=== PATIENT | female | born 1960 | race Caucasian/White ===

== ENCOUNTER 2016-05-24 22:51 | Emergency (ER) | payer OTHER ==
[2016-05-24] MEDS ORDERED: ONDANSETRON 4 MG/2 ML VIAL ONE (23:01)
[2016-05-24] MEDS ORDERED: HYDROmorphONE/DILAUDID 1 MG/ML SYR ONE (23:02)
[2016-05-24 23:03] VITALS: TEMP 97.9
[2016-05-24] MEDS ORDERED: NS 1,000 ML IV ONE (23:08)
[2016-05-24] MEDS ORDERED: ONDANSETRON 4 MG/2 ML VIAL IVP ONE (23:08)
[2016-05-24] MEDS ORDERED: HYDROmorphONE/DILAUDID 1 MG/ML SYR IVP ONE ×2 (23:08→23:22)
--- NOTE | 2016-05-24 23:12 | EDPHY ---
H & P Stated Complaint: RLQ pain Time Seen by Provider: 05/24/16 23:03 HPI/ROS: CHIEF COMPLAINT: Right lower quadrant pain HISTORY OF PRESENT ILLNESS: Patient is a 56-year-old female with a history of fibromyalgia who comes to the emergency department complaining of right lower quadrant pain that began suddenly an hour half ago. She has not had a fever. She has had normal bowel movements today. No vomiting. No urinary symptoms. No vaginal bleeding or discharge. she states that this feels different than her typical fibromyalgia pain. It does seem different than kidney stones she has had in the past. She does have a history of and hysterectomy. REVIEW OF SYSTEMS: Constitutional: denies: chills, fever, recent illness, recent injury EENTM: denies: blurred vision, double vision, nose congestion Respiratory: denies: cough, shortness of breath Cardiac: denies: chest pain, irregular heart rate, lightheadedness, palpitations Gastrointestinal/Abdominal: See HPI Genitourinary: denies: dysuria, frequency, hematuria, pain Musculoskeletal: denies: joint pain, muscle pain Skin: denies: lesions, rash, jaundice, bruising Neurological: denies: headache, numbness, paresthesia, tingling, dizziness, weakness Hematologic/Lymphatic: denies: blood clots, easy bleeding, easy bruising Immunologic/allergic: denies: HIV/AIDS, transplant EXAM: GENERAL: Very dramatic, shaking and holding her right lower quadrant HEAD: Atraumatic, normocephalic. EYES: Pupils equal round and reactive to light, extraocular movements intact, sclera anicteric, conjunctiva are normal. ENT: TMs normal, nares patent, oropharynx clear without exudates. Moist mucous membranes. NECK: Normal range of motion, supple without lymphadenopathy or JVD. LUNGS: Breath sounds clear to auscultation bilaterally and equal. No wheezes rales or rhonchi. HEART: Regular rate and rhythm without murmurs, rubs or gallops. ABDOMEN: Severe pain, not worsened with palpation. Radiates to her flank. No palpable hernia. BACK: No CVA tenderness, no spinal tenderness, step-offs or deformities EXTREMITIES: Normal range of motion, no pitting or edema. No clubbing or cyanosis. NEUROLOGICAL: Cranial nerves II through XII grossly intact. Normal speech, normal gait. 5/5 strength, normal movement in all extremities, normal sensation PSYCH: Normal mood, normal affect. SKIN: Warm, dry, normal turgor, no visible rashes or lesions. Source: Patient Exam Limitations: No limitations - Personal History Current Tetanus Diphtheria and Acellular Pertussis (TDAP): Yes - Medical/Surgical History Hx Asthma: No Hx Chronic Respiratory Disease: No Hx Diabetes: No Hx Cardiac Disease: No Hx Renal Disease: No Hx Cirrhosis: No Hx Alcoholism: No Hx HIV/AIDS: No Hx Splenectomy or Spleen Trauma: No Other PMH: fibromyalgia, c-sections, hysterectomy - Family History Significant Family History: No pertinent family hx - Social History Smoking Status: Never smoked Alcohol Use: Sober Drug Use: None Constitutional: Initial Vital Signs Temperature (C) 36.6 C 05/24/16 22:58 Heart Rate 94 05/24/16 22:58 Respiratory Rate 16 05/24/16 22:58 Blood Pressure 177/101 H 05/24/16 22:58 O2 Sat (%) 96 05/24/16 22:58 O2 Delivery Mode Room Air O2 (L/minute) 2 Allergies/Adverse Reactions: Sulfa (Sulfonamide Antibiotics) Allergy (Verified 05/24/16 22:57) Home Medications: Medication Instructions Recorded Gabapentin 05/24/16 traMADol 05/24/16 Hydrocodone/APAP 5/325 [Mukilteo 1 - 2 tab PO Q4H PRN #10 tab 05/25/16 5/325] Ketorolac Tromethamine [Toradol] 10 mg PO Q6H #16 tab 05/25/16 Ondansetron Odt [Zofran Odt 4 mg 4 mg PO Q4 PRN #20 tab 05/25/16 (RX)] Tamsulosin HCl [Flomax] 0.4 mg PO DAILY #10 cap 05/25/16 oxyCODONE/APAP 5/325 [Percocet 1 - 2 tab PO Q4H PRN #20 tab 05/25/16 5/325] Medical Decision Making - Diagnostics Imaging: Results: CT scan of the abdomen and pelvis was obtained. The results of the study are positive for right-sided ureteral stone. The study was read by Dr. Alexandre Palma. I viewed the images myself on the PACS system. ED Course/Re-evaluation: 1:[address] a[address]. we discussed the CT results. The patient and family understand. She is requesting more pain medication and nausea medication. Patient is feeling much better. We discussed follow-up. Differential Diagnosis: Partial list of the Differential diagnosis considered include but were not limited to; kidney stone, appendicitis, and although unlikely based on the history and physical exam, I also considered obstruction, ischemia. I discussed these differential diagnoses and the plan with the patient as well as the usual and expected course. The patient understands that the diagnosis is provisional and that in medicine we are not always correct and that further workup is often warranted. Usual and customary warnings were given. All of the patient's questions were answered. The patient was instructed to return to the emergency department should the symptoms at all worsen or return, otherwise to followup with the physician as we discussed. - Data Points Laboratory Results: Laboratory Results 05/24/16 23:00 05/24/16 23:00 Medications Given: Discontinued Medications Hydromorphone HCl (Dilaudid) 1 mg IVP EDNOW ONE Stop: 05/24/16 23:09 Last Admin: 05/24/16 23:10 Dose: 1 mg Hydromorphone HCl (Dilaudid) 1 mg IVP EDNOW ONE Stop: 05/24/16 23:23 Last Admin: 05/24/16 23:22 Dose: 1 mg Sodium Chloride (Ns) 1,000 mls @ 0 mls/hr IV ONCE ONE PRN Reason: Wide Open Stop: 05/24/16 23:09 Last Admin: 05/24/16 23:10 Dose: 1,000 mls Sodium Chloride (Ns) 1,000 mls @ 0 mls/hr IV ONCE ONE PRN Reason: Wide Open Stop: 05/25/16 01:04 Last Admin: 05/25/16 01:00 Dose: 1,000 mls Ketorolac Tromethamine (Toradol) 30 mg IVP EDNOW ONE Stop: 05/25/16 01:45 Last Admin: 05/25/16 01:50 Dose: 30 mg Ondansetron HCl (Zofran) 4 mg IVP EDNOW ONE Stop: 05/24/16 23:09 Last Admin: 05/24/16 23:10 Dose: 4 mg Ondansetron HCl (Zofran) 4 mg IVP EDNOW ONE Stop: 05/25/16 01:45 Last Admin: 05/25/16 01:51 Dose: 4 mg Ondansetron HCl (Zofran Odt 4 Mg Prepack#2) 1 btl TAKEHOME EDNOW ONE Stop: 05/25/16 01:52 Last Admin: 05/25/16 01:51 Dose: 1 btl Tamsulosin HCl (Flomax) 0.4 mg PO EDNOW ONE Stop: 05/25/16 01:45 Last Admin: 05/25/16 01:51 Dose: 0.4 mg Departure - Departure Disposition: Home, Routine, Self-Care Clinical Impression: Renal colic on right side Condition: Fair Instructions: Ondansetron (By mouth), Kidney Stones (ED) Referrals: Prema Caraballo MD [Primary Care Provider] - As per Instructions Deejay Lizarraga MD [Medical Doctor] - As per Instructions Prescriptions: Tamsulosin HCl [Flomax] 0.4 mg PO DAILY #10 cap Hydrocodone/APAP 5/325 [Mukilteo 5/325] 1 - 2 tab PO Q4H PRN #10 tab PRN Reason: Pain, Moderate oxyCODONE/APAP 5/325 [Percocet 5/325] 1 - 2 tab PO Q4H PRN #20 tab PRN Reason: Pain, Severe Ketorolac Tromethamine [Toradol] 10 mg PO Q6H #16 tab Ondansetron Odt [Zofran Odt 4 mg (RX)] 4 mg PO Q4 PRN #20 tab PRN Reason: Nausea & Vomiting
[2016-05-24 23:33] LABS: % IMMATURE GRANULYOCYTES 0.2 % (0.0-1.1); ABSOLUTE IMMATURE GRANULOCYTES 0.02 10^3/uL (0.00-0.10); ADD DIFF? NO; ATYPICAL LYMPHOCYTE FLAG 10 (0-99); FRAGMENT RBC FLAG 0 (0-99); HEMATOCRIT 41.9 % (38.0-47.0); HEMOGLOBIN 14.6 g/dL (12.6-16.3); LEFT SHIFT FLG 0 (0-99); MEAN CELL HEMOGLOBIN 30.5 pg (27.9-34.1); MEAN CELL HEMOGLOBIN CONCENTR. 34.8 g/dL (32.4-36.7); MEAN CELL VOLUME 87.5 fL (81.5-99.8); MEAN PLATELET VOLUME 10.8 fL (8.7-11.7); PLATELET COUNT 272 10^3/uL (150-400); RED BLOOD CELL COUNT 4.79 10^6/uL (4.18-5.33)
[2016-05-24 23:34] LABS: ADD MORPH? NO; ADD SCAN? NO; LIPEMIA HEMOLYSIS FLAG 90 (0-99); PLATELET CLUMPS FLAG 0 (0-99)
[2016-05-24 23:49] LABS: ALANINE AMINOTRANSFERASE 40 IU/L (9-52); ALBUMIN 4.6 g/dL (3.5-5.0); ALKALINE PHOSPHATASE 86 IU/L (38-126); ANION GAP 13 mEq/L (8-16); ASPARTATE AMINOTRANSFERASE 28 IU/L (14-46); BILIRUBIN,TOTAL 0.5 mg/dL (0.1-1.4); BILIRUBIN-CONJUGATED 0.5 mg/dL (0.0-0.5); CALCIUM 10.1 mg/dL (8.5-10.4); CARBON DIOXIDE 26 mEq/l (22-31); CHLORIDE 104 mEq/L (97-110); GLOMERULAR FILTRATION RATE 57; GLUCOSE 117 mg/dL (70-100); SODIUM 143 mEq/L (134-144); TOTAL PROTEIN 7.7 g/dL (6.3-8.2)
[2016-05-25] MEDS ORDERED: IOPAMIDOL (ISOVUE-300) 100 ML BTL IV ONE (00:27)
[2016-05-25] MEDS ORDERED: NS 1,000 ML IV ONE (01:03)
[2016-05-25 01:09] LABS: COLOR PALE YELLOW; LEUKOCYTE ESTERASE,URINE NEGATIVE (NEGATIVE); NITRITE,URINE NEGATIVE (NEGATIVE)
[2016-05-25] MEDS ORDERED: TAMSULOSIN HCL 0.4 MG CAP PO ONE (01:44)
[2016-05-25] MEDS ORDERED: ONDANSETRON 4 MG/2 ML VIAL IVP ONE (01:44)
[2016-05-25] MEDS ORDERED: KETOROLAC 30 MG/1 ML SDV IVP ONE (01:44)
[2016-05-25] MEDS ORDERED: ONDANSETRON 4MG PREPACK#2 BTL TAKEHOME ONE ×2 (01:49→01:51)
[2016-05-25 06:35] VITALS: BP 148/95; PULSE 84; RESP 18; O2SAT 95
--- NOTE | 2016-05-25 10:03 | CT ---
CT Scan of the Abdomen and Pelvis (With Contrast) 00 37 hours History: Sudden onset right lower quadrant pain. History of kidney stones. Technique: Axial computed tomographic images of the abdomen and pelvis were obtained with the uneven tful intravenous administration of 85 mL Isovue-300 contrast. . Images were reviewed in multiple chandana bry. Dose reduction techniques were utilized. CT Abdomen and Pelvis Findings: Lung bases: Normal. Liver: Within the right lobe of the liver posterior segment is a tiny less than 5 mm probable cyst. No significant liver lesion is seen. The liver is normal in size. Spleen: Normal. Gallbladder and Bile Ducts: Normal. Pancreas: Normal. Adrenals: Normal. Kidneys: There is moderate right-sided hydronephrosis with moderate dilatation of the right ureter d own to the pelvis where there is a distal right ureteral calculus that measures 4.2 x 3.1 x 3.5 mm i n AP, transverse, and longitudinal dimensions. This is positioned about 5 cm above the UVJ. Within t he lower pole of the right kidney there is a nonobstructive calculus measuring 6.5 x 4 mm. No additi onal urinary tract calculi are seen on either side. There is a small subcentimeter cyst lower pole r ight kidney. There is no significant renal mass identified. Abdominal Aorta: No aneurysm. There is mild arteriosclerotic calcified plaque of the distal aorta. Pelvic structures: The patient has apparently had a previous hysterectomy. No adnexal masses are see n. Bladder: Normal. Appendix: Normal. Bowel Loops: There is a mild amount of residual stool present within the colon compatible with mild constipation. There are no significantly dilated loops of bowel.. No bowel obstruction, ascites, or significant retroperitoneal lymphadenopathy. Skeletal system: Vertebral body heights are well-maintained. There are no significant lytic or scle rotic osseous lesions. Moderate facet hypertrophy is present at L4-L5 with moderate degenerative dis k disease at L5-S1. Impression: 1. Moderate right-sided hydronephrosis secondary to a distal right ureteral calculus about 5 cm abov e the UVJ as detailed above. 2. Nonobstructive calculus lower pole right kidney. 3. Mild constipation. 4. Moderate facet hypertrophy L4-L5 with moderate degenerative disk disease L5-S1. The study was performed as an emergency on-call case and discussed by telephone with Dr. Ghosh at 0112 hrs. The final interpretation is concordant with the original communication.
== END 2016-05-25 02:10 | disposition home or self-care (01) ==
DX: N23 Unspecified renal colic (principal); Z90.710 Acquired absence of both cervix and uterus
CPT/HCPCS: 96374; J1170; J1885; J2405; Q9967

== ENCOUNTER → 2016-05-27 | Outpatient (CLI) | payer OTHER | LOC: CIMAGING 13:46 | PROVIDERS: ATTEND Specialist | DX: N20.0 Calculus of kidney (principal) | CPT/HCPCS: 74000-PO ==

== ENCOUNTER 2016-06-24 05:46 | Day surgery (SDC) | payer OTHER ==
[2016-06-24] MEDS ORDERED: LIDOCAINE 1% 2 ML INJ ONE (05:58)
[2016-06-24] MEDS ORDERED: LIDOCAINE 2% JELLY 20 ML (UROJECT) ONE (06:30)
[2016-06-24] MEDS ORDERED: IOPAMIDOL (ISOVUE-M 300) 15 ML VIAL IV ONE ×2 (06:31→06:32)
[2016-06-24] MEDS ORDERED: MIDAZOLAM 2 MG/2 ML VIAL ONE (07:10)
[2016-06-24] MEDS ORDERED: CEFAZOLIN 2 GM/DEXTROSE/100 ML BAG IV ONE (07:12)
[2016-06-24] MEDS ORDERED: DEXAMETHASONE 4 MG/ML VIAL ONE (07:19)
[2016-06-24] MEDS ORDERED: LIDOCAINE 2% 5 ML SDV ONE (07:19)
[2016-06-24] MEDS ORDERED: PROPOFOL 200 MG/20 ML VIAL ONE (07:19)
[2016-06-24] MEDS ORDERED: fentaNYL 100 MCG/2 ML INJ ONE ×2 (07:19→08:26)
[2016-06-24] MEDS ORDERED: SCOPOLAMINE HYDROBROMIDE 1.5 MG PATCH TD ONE (07:30)
[2016-06-24] MEDS ORDERED: ceFAZolin 2 GM/DEXTROSE 100 ML IV ONE (08:00)
--- NOTE | 2016-06-24 08:07 | SUROPNOTE ---
[facility] Operative Report - Surgery right ureteroscopy GLMA Zia right stent no stone seen dictation [id number]
--- NOTE | 2016-06-24 08:38 | GOP ---
[f rep st] OPERATIVE REPORT DATE OF OPERATION: 06/24/2016 SURGEON: Marcus Lizarraga MD ANESTHESIA: General laryngeal mask. PREOPERATIVE DIAGNOSIS: Right renal colic, history of distal right ureteral stone, possible persist ent stone. POSTOPERATIVE DIAGNOSIS: Probable passed stone, a focal patch of bladder erythema. PROCEDURE PERFORMED: Cystoscopy, ureteroscopy, and stent insertion. FINDINGS: ESTIMATED BLOOD LOSS: None. DESCRIPTION OF PROCEDURE: Patient was taken to the operating room, general anesthesia was induced. Patient was placed in the dorsal lithotomy position, prepped and draped in sterile fashion. The 22 -Latvian cystoscope with 30-degree lens was inserted through the patient's urethra into the patient's bladder. No urothelial defects, masses, or stones were noted. The patient did have a very small m inor area of erythema near the right ureteral orifice suggesting a possible prior stone lodged at th is location. A Sensor wire was inserted into the right ureteral orifice and guided up to the right renal pelvis by fluoroscopy. The inner trocar of an access sheath was used to gently dilate the dis diallo ureter up to the mid ureter with zero difficulty. The access sheath inner trocar was removed. The semi-rigid ureteroscope was guided alongside the wire carefully up to the UPJ. No stone was dianne ntified. It was carefully withdrawn and no stone was identified. It was actually reinserted into t he first half of the distal third, and again, no stone was identified. Careful examination was perf ormed looking for a duplicated ureter. No other ureteral orifice was identified. The EO did not se em to be in need of biopsy. The wire was backloaded onto the cystoscope and a 6-Latvian stent was pl aced in the right renal pelvis by fluoroscopy and seen to curl in the bladder by direct vision. The bladder was drained. She was returned to the supine position, and was being prepared for transfer to the recovery room at time of this dictation. SURGEON: Marcus Lizarraga MD COMPLICATIONS: None. DRAINS: Right-sided 6-Latvian variable length stent. /[id number]/MODL
[2016-06-24] MEDS ORDERED: OXYCODONE/APAP 5/325 TAB ONE ×2 (09:04→09:53)
[2016-06-24] MEDS ORDERED: OPIUM/BELLADONNA ALKALO SUPP PR ONE ×2 (09:42→10:30)
== END 2016-06-24 10:15 | disposition home or self-care (01) ==
LOC: FSGY 05:46
PROVIDERS: ATTEND Specialist
PROC: 0T768DZ Dilation of Right Ureter with Intraluminal Device, Via Natural or Artificial Opening Endoscopic (ICD-10-PCS; principal; 2016-06-24 07:15)
DX: N23 Unspecified renal colic (principal); R35.0 Frequency of micturition; Z87.442 Personal history of urinary calculi; M79.7 Fibromyalgia; I10 Essential (primary) hypertension; Z87.891 Personal history of nicotine dependence
CPT/HCPCS: C1758; C1769; C1894; C2625; J0690; J1100; J2250; J2704; J3010; Q9967

== ENCOUNTER → 2016-07-22 | Outpatient (CLI) | payer OTHER | LOC: CIMAGING 16:42 | PROVIDERS: ATTEND Specialist | DX: R35.0 Frequency of micturition (principal) | CPT/HCPCS: 76770-PO ==

== ENCOUNTER → 2016-09-16 | Outpatient (CLI) | payer OTHER | LOC: CIMAGING 19:27 | PROVIDERS: ATTEND Specialist | DX: N20.0 Calculus of kidney (principal); R93.49 Abnormal radiologic findings on diagnostic imaging of other urinary organs | CPT/HCPCS: 74000-PO ==

== ENCOUNTER 2016-10-09 10:07 | Observation (INO) | payer OTHER ==
[2016-10-09] MEDS ORDERED: KETAMINE 500 MG/10 ML VIAL NASAL ONE (10:22)
[2016-10-09] MEDS ORDERED: HYDROmorphONE/DILAUDID 1 MG/ML SYR ONE ×2 (10:43→11:26)
[2016-10-09] MEDS ORDERED: ONDANSETRON 4 MG/2 ML VIAL ONE ×3 (10:44→14:51)
[2016-10-09] MEDS ORDERED: KETOROLAC 15 MG/1 ML SDV ONE (10:57)
[2016-10-09] MEDS ORDERED: KETOROLAC 15 MG/1 ML SDV IVP ONE (10:57)
[2016-10-09] MEDS ORDERED: ONDANSETRON 4 MG/2 ML VIAL IVP ONE ×2 (11:30→12:35)
[2016-10-09] MEDS: HYDROmorphONE/DILAUDID 1 MG/ML SYR IVP PRN ×2 (11:30→13:59)
--- NOTE | 2016-10-09 12:58 | EDPHY ---
H & P Stated Complaint: r kidney stone/lithotrypsy thurs Time Seen by Provider: 10/09/16 10:21 HPI/ROS: CHIEF COMPLAINT: Kidney stones HISTORY OF PRESENT ILLNESS: The patient is a 56 y/o female with known kidney stones complaining of severe right flank pain and nausea. On 05/25/16 she was evaluated here with similar pain and had a right side uretal stone and kidney stone confirmed on CT. By June, she had surgery because the uretal stone wasn' t passing. During surgery they found the stone was gone and they placed a stent , which she was unable to tolerate for more than a day. She then had a lithotripsy in [facility] 3 days ago. She felt great yesterday and passed a piece of stone without pain. This morning around 05:00, about 7 hours ago, she began to feel uncomfortable and she attributed it expected soreness from the procedure. Then abruptly she was hit with severe flank pain that "dropped me to my knees." She only took her normal Tramadol dose at home and did not use the narcotics prescribed by her urologist. After pain medication here, she continues to have dull pain and pressure that waxes and wanes. She denies fever. REVIEW OF SYSTEMS: A 10 point review of systems was performed and is negative with the exception of the elements mentioned in the history of present illness. * - Personal History Current Tetanus/Diphtheria Vaccine: Yes - Medical/Surgical History PMH: PMH: 1. Fibromyalgia - Tramadol 2. Kidney stones, first episode 15 years ago. 3. Hypertension - started Losartan 2 weeks ago 4. Uretal surgery 5. Lithotripsy 6. C-sections 7. Hysterectomy Hx Asthma: No Hx Chronic Respiratory Disease: No Hx Diabetes: No Hx Cardiac Disease: No Hx Renal Disease: Yes Hx Cirrhosis: No Hx Alcoholism: No Hx HIV/AIDS: No Hx Splenectomy or Spleen Trauma: No Other PMH: fibromyalgia, c-sections, hysterectomy - Social History Smoking Status: Former smoker Additional Social History: Nonsmoker. Very rare alcohol use. Urologist: Dr. Deejay Lizarraga PCP: Dr. Muro - Physical Exam Exam: General Appearance: Alert, no acute distress. * Eyes: Pupils equal and round, no conjunctival injection, no discharge. ENT, Mouth: Mucous membranes are moist, no oropharyngeal erythema or edema. Neck: No lymphadenopathy, supple. Respiratory: Lungs are clear to auscultation; no wheezes, rales, or rhonchi. Cardiovascular: Regular rate and rhythm; no murmur, rub, or gallop. Gastrointestinal: Abdomen is soft and non tender, no masses or organomegaly. Skin: Warm and dry, no rashes, normal color. Back: Nontender to palpation over the midline thoracolumbar spine. Moderate right CVA tenderness. Extremities: No lower extremity edema, no calf tenderness or swelling. Neurological: Alert and oriented. Moving all four extremities easily and equally. Psychiatric: Normal affect. Constitutional: Initial Vital Signs Temperature (C) 36.7 C 10/09/16 10:12 Heart Rate 112 H 10/09/16 10:12 Respiratory Rate 28 H 10/09/16 10:12 Blood Pressure 158/106 H 10/09/16 10:12 O2 Sat (%) 99 10/09/16 10:12 O2 Delivery Mode Nasal Cannula O2 (L/minute) 1 Allergies/Adverse Reactions: Sulfa (Sulfonamide Antibiotics) Allergy (Verified 10/09/16 10:08) Hives Home Medications: Medication Instructions Recorded traMADol 05/24/16 Flomax 10/09/16 Losartan Potassium 10/09/16 Oxycodone HCl 10/09/16 Medical Decision Making - Diagnostics Imaging Results: Imaging Impressions Abdomen/Pelvis CT 10/09/16 13:06 Impression: 1. Right mid pelvic ureteral stone (4.7 x 4.5 x 4.3 mm). 2. Incompletely evaluated right lung nodule or infiltrate. Results discussed with Dr. Elizabeth Novak. Attention: This CT examination is specifically designed to evaluate patients who are clinically suspected of having acute obstructive uropathy. This examination does not use radiographic contrast, and as such, provides only a limited evaluation of the abdomen, pelvis and retroperitoneum. If there is further clinical suspicion for pathological conditions other than obstructive uropathy, a complete CT evaluation of the abdomen and pelvis utilizing intravenous, oral, and rectal contrast should be considered. General information for patients regarding this examination can be found at [email or web address]. If you have questions or comments about this report, please contact me at (hospital) or [phone] (cell). ED Course/Re-evaluation: IV established. Labs drawn. 1mg IV Dilaudid, 15mg IV Toradol, 4mg IV Zofran, 1L IV NS administered. Presents with intractable right flank pain following lithotripsy 3 days ago. She feels mildly improved since pain medication administration here. She has moderate right CVA tenderness on exam. Discussed risks and benefits of repeat abdominal CT. Patient has decided to undergo additional imaging. Additional 15mg IV Toradol administered. 50mg IN Ketamine administered. CT shows large renal stone and hydronephrosis. I discussed this with the patient. She continues to have pain. We have had a difficult time controlling her pain here with Dilaudid, Toradol, and Ketamine and she will require admission for further management, which she agrees to. 1451: Consulted with Dr. Mcdaniel, urologist. He will follow patient during admission. - Data Points Medications Given: Discontinued Medications Ketamine HCl (Ketamine) 50 mg NASAL EDNOW ONE Stop: 10/09/16 10:23 Last Admin: 10/09/16 10:30 Dose: 50 mg Ketorolac Tromethamine (Toradol) 15 mg IVP EDNOW ONE Stop: 10/09/16 10:58 Last Admin: 10/09/16 11:01 Dose: 15 mg Ketorolac Tromethamine (Toradol) 15 mg IVP EDNOW ONE Stop: 10/09/16 13:53 Last Admin: 10/09/16 13:59 Dose: 15 mg Ondansetron HCl (Zofran) 4 mg IVP EDNOW ONE Stop: 10/09/16 12:36 Last Admin: 10/09/16 12:35 Dose: 4 mg Ondansetron HCl (Zofran) 4 mg IVP EDNOW ONE Stop: 10/09/16 11:31 Last Admin: 10/09/16 11:30 Dose: 4 mg Departure - Departure Disposition: [facility] Inpatient Acute Clinical Impression: Flank pain, Right ureteral stone, Intractable pain Hydronephrosis Qualifiers: Hydronephrosis type: with ureteral calculous obstruction Qualified Code(s): N13.2 - Hydronephrosis with renal and ureteral calculous obstruction Condition: Fair Instructions: Kidney Stones (ED), How to Strain Your Urine (ED), Flank Pain (ED ), Hydronephrosis (ED) Additional Instructions: 1. Take pain medication as prescribed by your urologist when needed for severe pain. 2. You can take up to 800mg ibuprofen every 6-8 hours for pain and inflammation over the next few days. 3. Follow up with your urologist as needed. 4. Return to the ED for worsening of condition. Referrals: Shirley Muro MD [Primary Care Provider] - As per Instructions Deejay Lizarraga MD [Medical Doctor] - As per Instructions Report Scribed for: Elizabeth Novak Report Scribed by: Elizabeth Rosa Date of Report: 10/09/16 Time of Report: 12:59
[2016-10-09] MEDS ORDERED: KETOROLAC 30 MG/1 ML SDV IVP ONE (13:52)
[2016-10-09] MEDS ORDERED: NS 1,000 ML IV ONE (15:03)
[2016-10-09] MEDS ORDERED: TAMSULOSIN HCL 0.4 MG CAP PO ONE (15:04)
[2016-10-09] MEDS ORDERED: LORazepam 2 MG/ML INJ IVP PRN (16:07)
[2016-10-09] MEDS ORDERED: ACETAMINOPHEN 325 MG TAB PO PRN (16:07)
[2016-10-09] MEDS ORDERED: oxyCODONE IR 5 MG TAB PO PRN (16:07)
[2016-10-09] MEDS ORDERED: ONDANSETRON DISINTEGRATING 4 MG TAB PO PRN (16:07)
[2016-10-09] MEDS ORDERED: ONDANSETRON 4 MG/2 ML VIAL IVP PRN (16:07)
[2016-10-09] MEDS ORDERED: HYDROmorphONE/DILAUDID 1 MG/ML SYR IVP PRN (16:07)
[2016-10-09] MEDS ORDERED: PROMETHAZINE HCL 25 MG/ML INJ IVP PRN (16:07)
[2016-10-09] MEDS ORDERED: HYDROmorphONE/DILAUDID 6 MG/30 ML PCA IV PRN (16:28)
[2016-10-09] MEDS ORDERED: NALOXONE HCL 0.4 MG/ML INJ IVP PRN (16:28)
[2016-10-09] MEDS ORDERED: KETOROLAC 30 MG/1 ML SDV IVP PRN (16:28)
[2016-10-09] MEDS ORDERED: MAGNESIUM HYDROXIDE 30 ML UDCUP PO PRN (16:28)
[2016-10-09] MEDS ORDERED: BISACODYL 10 MG SUPP PR PRN (16:28)
[2016-10-09] MEDS ORDERED: POLYETHYLENE GLYCOL 3350 17 GM PKT PO PRN (16:28)
[2016-10-09] MEDS ORDERED: LACTULOSE 20 GM/30 ML UDCUP PO PRN (16:28)
[2016-10-09 16:38] LABS: COLOR PALE YELLOW; LEUKOCYTE ESTERASE,URINE 1+ (NEGATIVE); NITRITE,URINE NEGATIVE (NEGATIVE)
--- NOTE | 2016-10-09 16:41 | PDCONSULT ---
Fisheries Enforcement Officer Note: Reviewed CT images and report. Discussed case with Dr. Novak. Called pt and discussed findings. Pt is adamant that she will not have another stent placed. Ureteroscopy cannot be safely performed in this situation without placing a stent. Pt wishes to pursue medical management and avoid stent placement at all costs. Will reassess pt in am
[2016-10-09 16:46] LABS: BACTERIA 1+ /hpf (NONE SEEN); MUCUS TRACE /lpf (NONE-1+); RBC,URINE 50-182 /hpf (0-3); WBC,URINE 15-25 /hpf (0-3)
[2016-10-09] MEDS: NS 1,000 ML IV SCH ×2 (16:58→23:59)
--- NOTE | 2016-10-09 17:35 | GHP ---
[f rep st] HISTORY AND PHYSICAL DATE OF ADMISSION: 10/09/2016 CHIEF COMPLAINT: Flank pain. HISTORY OF PRESENT ILLNESS: This is a 56-year-old female who has a past medical history of nephroli thiasis and is status post lithotripsy 3 days ago, who returns to the ER with complaints of worsenin g right flank pain and associated nausea. She notes that yesterday following the lithotripsy she fe lt good and passed a small piece of stone. Unfortunately this morning the pain became more and more intense and she feels also flared up her fibromyalgia. She was seen in the emergency department by Dr. Mcdaniel and told him that she was adamantly not in favor of pursuing a stent, as this in the tx st has led to worsening pain. So, for the time being, the plan is to treat conservatively with IV f luids and pain medication. At the time of my evaluation, she is noted to be in significant pain and is on her hands and knees groaning. PAST MEDICAL HISTORY: Includes: 1. Fibromyalgia. 2. Recurrent nephrolithiasis. 3. Hypertension. PAST SURGICAL HISTORY: Includes: 1. Lithotripsy. 2. Ureteral stents. 3. . 4. Hysterectomy. SOCIAL HISTORY: Patient is a former smoker. She uses alcohol rarely. She lives independently. FAMILY HISTORY: This was reviewed and noncontributory. REVIEW OF SYSTEMS: A 10-point review of systems obtained and negative except as per HPI. HOME MEDICATIONS: Include: 1. Tramadol. 2. Oxycodone. 3. Losartan. 4. Flomax. ALLERGIES: Sulfa. PHYSICAL EXAMINATION: VITAL SIGNS: BP 162/95, heart rate 78, respiratory rate 18, O2 sats 96% on r oom air. Temperature is 36.5. GENERAL APPEARANCE: This is a well-developed/well-nourished female. She is in obvious pain, on her hands and knees, groaning in the bed. EYES: Anicteric. OROPHARYN X: Clear. HEART: Regular rate and rhythm. No MRG. LUNGS: CTA bilaterally. ABDOMEN: Soft. Sh christin has severe CVA tenderness on the right. Bowel sounds are decreased. EXTREMITIES: Without clubbi ng, cyanosis or edema. SKIN: Warm, dry, well perfused. NEURO/PSYCH: Patient is oriented and appr opriate, though in obvious distress. CLINICAL STUDIES: Most recent labs were reviewed and are unremarkable. I do not have current labs other than a urinalysis which shows 3+ blood, 1+ leuk esterase. Abdominal CT, personally reviewed and interpreted, shows a right mid pelvic ureteral stone, 4.7 x 4. 5 x 4.3 mm, and an incompletely evaluated right lung nodule versus infiltrate. ASSESSMENT AND PLAN: This is a 56-year-old female presenting with severe right flank pain secondary to recurrent nephrolithiasis. 1. Nephro/ureterolithiasis. Again, patient has been seen by Urology and is currently declining a s tent. She will be given IV fluids and started on Flomax. She will be monitored overnight, urine st rained. Urology will follow and, if pain is not improved in the morning, may have to further consid er intervention. 2. Fibromyalgia contributing to her difficulty managing her pain. We will continue her home medica tions. 3. Pain. This remains severe and the patient is essentially unable to manage the pain as it stands . She will be started on a DEEP FAT COOK FRY as well as Toradol. Suspect her underlying fibromyalgia is leading to her difficulty managing her pain. 4. Patient is new to my care. Old records reviewed, summarized as per HPI and past medical history . Care plan reviewed with the ER physician. BMP and CBC were ordered to further evaluate for any s igns of kidney damage related to issues as above, as well as any signs of infection. /[id number]/MODL
[2016-10-09 18:48] LABS: % IMMATURE GRANULYOCYTES 0.3 % (0.0-1.1); ABSOLUTE IMMATURE GRANULOCYTES 0.03 10^3/uL (0.00-0.10); ADD DIFF? NO; ADD MORPH? NO; ADD SCAN? NO; ATYPICAL LYMPHOCYTE FLAG 10 (0-99); FRAGMENT RBC FLAG 0 (0-99); HEMATOCRIT 36.7 % (38.0-47.0); HEMOGLOBIN 12.5 g/dL (12.6-16.3); LEFT SHIFT FLG 0 (0-99); LIPEMIA HEMOLYSIS FLAG 90 (0-99); MEAN CELL HEMOGLOBIN 29.8 pg (27.9-34.1); MEAN CELL HEMOGLOBIN CONCENTR. 34.1 g/dL (32.4-36.7); MEAN CELL VOLUME 87.4 fL (81.5-99.8); MEAN PLATELET VOLUME 10.4 fL (8.7-11.7); PLATELET CLUMPS FLAG 20 (0-99); PLATELET COUNT 198 10^3/uL (150-400); RED CELL DISTRIBUTION WIDTH 12.5 % (11.5-15.2)
[2016-10-09 19:16] LABS: ANION GAP 10 mEq/L (8-16); CALCIUM 9.4 mg/dL (8.5-10.4); CARBON DIOXIDE 24 mEq/l (22-31); CHLORIDE 107 mEq/L (97-110); CREATININE 0.7 mg/dL (0.6-1.0); GLOMERULAR FILTRATION RATE > 60; GLUCOSE 125 mg/dL (70-100); POTASSIUM 3.7 mEq/L (3.5-5.2); SODIUM 141 mEq/L (134-144)
[2016-10-09] MEDS: SENNOSIDES/DOCUSATE SODIUM TAB PO SCH (19:56)
[2016-10-10] MEDS ORDERED: PNEUMOCOCCAL 0.5ML VACCINE VIAL IM ONE (01:46)
[2016-10-10] MEDS: NS 1,000 ML IV SCH (06:35)
[2016-10-10 06:38] VITALS: RESP 16
--- NOTE | 2016-10-10 08:08 | PDCONSULT ---
Tube Sizer Operator Note: Pt seen and examined. full consult dictated. Passed a large stone last PM and feels better today. Had some mild residual nausea but no further pain. I discussed options including repeat CT (don't recommend), KUB, or observation. Given she is adamant that she will not have ureteroscopy recommend against any further imaging but she requests a KUB to be done to see if she has anything else to be worried about. This is reasonable. I did discuss the limitations of KUBs. Will communicate the results when available.
[2016-10-10] MEDS ORDERED: oxyCODONE IR 5 MG TAB PO PRN (08:55)
[2016-10-10] MEDS ORDERED: traMADol 50 MG TAB PO PRN (08:55)
[2016-10-10] MEDS: SENNOSIDES/DOCUSATE SODIUM TAB PO SCH (08:57)
--- NOTE | 2016-10-10 08:57 | PDDCSUM ---
Discharge Summary Discharge Summary: Dates of service 10/09-10/10/16 Discharge dx: # ureteronephrolithiasis # flank pain Consultations: urology procedures performed: abd ct Hospital course by problem # ureterolithiasis: with 4mm stone noted following recent lithotripsy, pain was severe and unable to managed at home. Patient has had bad experience with ureteral stent in the past and refused this intervention, stone passed last night, pain largely resolved # flank pain: initially severe as above and requiring IV narcotics but now resolved with passing of the stone Meds: see EHR dc home > 35 minutes spent in dc of patient more than half in coordination of care
[2016-10-10] MEDS ORDERED: LOSARTAN POTASSIUM 25 MG TAB PO SCH (09:00)
[2016-10-10] MEDS ORDERED: TAMSULOSIN HCL 0.4 MG CAP PO SCH ×2 (09:00→21:00)
[2016-10-10 11:41] VITALS: BP 139/95; PULSE 94; TEMP 98; O2SAT 94
--- NOTE | 2016-10-10 12:57 | GCON ---
[f rep st] CONSULTATION DATE OF CONSULTATION: 10/10/2016 REFERRING PHYSICIAN: Elizabeth Novak MD REASON FOR REQUEST: Right flank pain. HISTORY OF PRESENT ILLNESS: The patient is a 56-year-old woman, who is a patient of my partner, Dr. Justine Lizarraga. She has a history of kidney stones. She had shockwave lithotripsy done earlier i n the week for a right renal stone. She developed acute onset of severe right flank pain associated with nausea and vomiting, came to the emergency room, where a CT was obtained which demonstrated a 5 mm stone approximately [address] the ureter with some proximal hydronephrosis and hydrouret er. The CT images were reviewed. The patient was admitted due to intractable pain. The patient hollis s a history of having fibromyalgia, as well as having ureteroscopy in the past, which she stated hav ing a stent was worse than having had the kidney stone, and she is adamant that she will not have st ents again in the future. She was admitted for pain control and overnight she passed a large fragme nt, and since that time she has felt significantly better. She no longer has any nausea or vomiting and the pain at this point is very minimal. She has not had any fever. Denies hematuria, frequenc y, or urgency. A followup KUB was obtained today, and there is calcification in the bladder; howeve r, this is stable compared to previous KUBs and likely represents some sort of a bone lesion. PAST MEDICAL HISTORY: Includes fibromyalgia, kidney stones, hypertension. PAST SURGICAL HISTORY: Includes ureteroscopy, shockwave lithotripsy, hysterectomy, and . She has a distant history of tobacco use. HOME MEDICATIONS: Reviewed and summarized in the chart. FAMILY HISTORY: Noncontributory. PHYSICAL EXAMINATION: GENERAL: Today, she is alert and oriented x4, in no apparent distress. HEEN T: Her head is normocephalic, atraumatic. Eyes, ears, nose and throat within normal limits. LUNGS : she has no increased respiratory effort. HEART: Regular. ABDOMEN: Soft, nontender, nondistend ed. EXTREMITIES: No clubbing, cyanosis, or edema. STUDIES: Reviewed. I personally reviewed her CT images, as well as her KUB image from today. Labo ratory values were reviewed and summarized in the chart. IMPRESSION: Right distal ureteral stone with recent passage of stone and stone not visible on KUB, as well as improvement in her symptoms. This suggests that she likely passed the stone and it is po ssible she could have some residual fragments; however, given the fact that she is feeling significa ntly better and the fact that she adamantly refuses surgery, I would not recommend any further urolo gic evaluation at this time. If she continues to have resolution of her pain, tolerates a diet, the n I would recommend discharge home with followup with Dr. Lizarraga. The patient is agreeable to thi s course of action. Thank you for allowing me to participate in her care. /[id number]/MODL
== END 2016-10-10 13:22 | disposition home or self-care (01) ==
LOC: F3E 15:53
PROVIDERS: ADMIT Internal Medicine; ATTEND Internal Medicine
DX: N13.2 Hydronephrosis with renal and ureteral calculous obstruction (principal); I10 Essential (primary) hypertension; M79.7 Fibromyalgia; Z87.891 Personal history of nicotine dependence
CPT/HCPCS: 82365-90; G0009; G0378; J1170; J1885; J2405

== ENCOUNTER → 2016-11-01 | Outpatient (CLI) | payer OTHER ==
[~2016-11-01] MED LIST: FUROSEMIDE 20 MG/2 ML VIAL IVP ONE; FUROSEMIDE 40 MG/4 ML VIAL ONE
== END ==
LOC: FIMAGING 14:16
PROVIDERS: ATTEND Specialist
DX: Z87.442 Personal history of urinary calculi (principal); R35.0 Frequency of micturition
CPT/HCPCS: J1940

== ENCOUNTER → 2016-11-26 | Outpatient (CLI) | payer OTHER | LOC: CIMAGING 10:30 | PROVIDERS: ATTEND Internal Medicine | DX: Z12.31 Encounter for screening mammogram for malignant neoplasm of breast (principal) | CPT/HCPCS: G0202 ==

== ENCOUNTER → 2018-02-03 | Outpatient (CLI) | payer OTHER | LOC: CIMAGING 10:11 | PROVIDERS: ATTEND Internal Medicine | DX: Z12.31 Encounter for screening mammogram for malignant neoplasm of breast (principal) ==